=== PATIENT | female | born 1970 | race Caucasian/White ===

== ENCOUNTER 2017-11-26 13:47 | Outpatient (CLI) | payer OTHER, SELFPAY ==
--- NOTE | 2017-11-26 13:49 | DI.RAD.S_ITS ---
PROCEDURE: PAIN L/S TRANSFORAMINAL INJECT INDICATIONS: Lumbosacral radiculopathy FINDINGS: Fluoroscopic spot filming was performed to verify placement of spinal needles at the left L5-S1 nerve root level(s), as labeled on the films. Appropriate location(s) of the needle tip(s) was confirmed by injection of iodinated contrast. IMPRESSION: Successful left L5-S1 nerve root localization. Dictated by: Duane Edmond M.D. on 11/26/2017 at 16:50 Approved by: Duane Edmond M.D. on 11/26/2017 at 16:51
[2017-11-26 14:37] VITALS: BP 128/80; PULSE 93; RESP 18; TEMP 36.3; O2SAT 98
[2017-11-26 15:00] VITALS: BP 188/112; PULSE 96; RESP 11; O2SAT 100
--- NOTE | 2017-11-26 15:04 | P.PCN_ITS ---
Procedures Date/Time Date of procedure: 11/26/17 Time of procedure: 15:00 General Procedure description: PREOP DIAGNOSIS 1. FORMAINAL STENOSIS WITH LE SYMPTOMS POST OP DIAGNOSIS 1. FORMAINAL STENOSIS WITH LE SYMPTOMS PROCEDURES 1.FLUOROSCOPICALLY GUIDED CONTRAST CONTROLLED TRANSFORAMINAL EPIDURAL STEROID INJECTION - Left L5/S1 PHYSICIAN: Shaq Ayoub DO INDICATIONS: Florence is referred by Reina FUNG for treatment of Foraminal Stenosis with Left LE Symptoms FINDINGS Foraminal Nerve Root Compression secondary to disc disease and facet hypertrophy DESCRIPTION OF PROCEDURE: Following denial of allergy and review of potential side effects and complications, including, but not necessarily limited to, infection, allergic reaction, local tissue breakdown, stroke, temporary or permanent nerve injury, paralysis, and possible , the patient indicated that the patient understood and agreed to proceed. An informed consent document was signed by the patient, witnessed by a nurse, and placed in the patient's chart. Additionally, other treatment options including medications, modalities, and physical therapy were reviewed with the patient. Per the patient request, IV conscious sedation was administered via 5mg of Versed to patient comfort. The patient's vital signs were monitored throughout the procedure by both the nurse and the physician without significant fluctuation. The patient remained conversant throughout the procedure. In the prone position following sterile prep and drape of the lumbar region, the Left L5/S1 posterior neuroforamen was identified fluoroscopically. The skin was anesthetized via a 25-gauge 1.5-inch needle with 1% lidocaine solution. At this point, a 25-gauge 3.5-inch spinal needle was atraumatically introduced and advanced under fluoroscopic guidance through the posterior Left L5/S1 neuroforamen to approximately the anterior aspect of the canal. Depth was confirmed on lateral view. Following negative aspiration, injection of approximately 1.5 cc of Isovue 200 under live fluoroscopy in the AP view confirmed excellent flow along the nerve root, into the epidural space without vascular or intrathecal uptake observed Radiological data, including multiple fluoroscopic views of the lumbosacral spine, reveal a spinal needle at the Left L5/S1 posterior neuroforamen. Subsequent views show flow of contrast material flowing superiorly and inferiorly along the nerve root confirming epidural flow. Subsequently, a test dose of 1.5 cc of 1% lidocaine solution was administered and patient was observed for two minutes for signs or symptoms of complications , including abdominal pain, shortness of breath, bilateral upper or lower extremity weakness, nausea and vomiting, prior to steroid injection. At this point, a total of 3 cc or 20 mg of dexamethasone and 80mg Depo Medrol was injected without incident. The patient was then transferred to the recovery area where they were observed for an appropriate time after the injection. The patient reported a VAS score of 7 prior to the procedure and a post-procedure VAS of 0. Total Fluoroscopy Time: 20.9 seconds Total Conscious Sedation Time: 24min POST OP INSTRUCTIONS The patient was provided a Pain Log to continue to record their response to the target-specific procedure prior to follow-up visit with their referring physician. Additionally, specific post-injection care instructions and a contact number to our office were provided if concerns arise regarding possible complications associated with the procedure are suspected. Shaq Ayoub DO Complications: none
[2017-11-26 15:07] VITALS: BP 170/100; PULSE 91; RESP 11; O2SAT 99
[2017-11-26 15:12] VITALS: BP 147/101; PULSE 93; RESP 11; O2SAT 99
[2017-11-26] MEDS: IOPAMIDOL 15 ML VIAL 3 ML INJ (15:12)
[2017-11-26] MEDS: MIDAZOLAM 5 MG/5 ML VIAL IV (15:12)
[2017-11-26] MEDS: BUPIVACAINE 0.25% (PF) 30 ML VIAL INJ (15:12)
[2017-11-26] MEDS: DEXAMETHASONE 10 MG/ML VIAL 20 MG INJ (15:12)
[2017-11-26] MEDS: methylPREDNISolone acetate 80 MG/ML VIAL INJ (15:12)
[2017-11-26 15:25] VITALS: BP 120/80; PULSE 91; RESP 16; O2SAT 98
[2017-11-26 15:32] VITALS: BP 128/88; PULSE 93; RESP 15; O2SAT 99
== END 2017-11-26 16:00 ==
PROVIDERS: PCP Nurse Practitioner; Visit Provider Physical Medicine & Rehabilitation
DX: M48.061 Spinal stenosis, lumbar region without neurogenic claudication (principal); M54.17 Radiculopathy, lumbosacral region; M43.17 Spondylolisthesis, lumbosacral region; M99.83 Other biomechanical lesions of lumbar region
CPT/HCPCS: 64483; 99152; J1040; J1100; J2250

== ENCOUNTER → 2019-10-28 16:36 | Outpatient (CLI) | payer OTHER, SELFPAY | PROVIDERS: PCP Physician Assistant Medical; Referring Provider Physical Medicine & Rehabilitation; Visit Provider Physical Medicine & Rehabilitation | DX: M43.17 Spondylolisthesis, lumbosacral region (principal); Z53.8 Procedure and treatment not carried out for other reasons; M47.816 Spondylosis without myelopathy or radiculopathy, lumbar region; M79.671 Pain in right foot ==

== ENCOUNTER → 2020-03-07 08:19 | Outpatient (CLI) | payer OTHER, SELFPAY ==
[2020-03-08 12:38] LABS: COVID19 Sendout Not Detected (Not Detect)
== END ==
PROVIDERS: PCP Physician Assistant Medical; Visit Provider Physician Assistant
DX: Z11.59 Encounter for screening for other viral diseases (principal)
CPT/HCPCS: 87635

== ENCOUNTER 2020-09-01 14:53 | Outpatient (CLI) | payer OTHER, SELFPAY ==
[2020-09-01] VITALS (7 sets, daily range): BP systolic 142–197; BP diastolic 72–96; PULSE 72–87; RESP 10–22; TEMP 37; O2SAT 97–99
--- NOTE | 2020-09-01 14:55 | DI.RAD.S_ITS ---
PROCEDURE: PAIN L/SI FACET INJ/BLK 1STL INDICATIONS: facet arthropathy COMPARISON: [facility], MR, MR LUMBAR SPINE WITHOUT CONTRAST, 01/29/2020, 9:19. [facility], RG, XR LUMBAR SPINE 6+ VIEWS, 12/18/2019, 11:21. FINDINGS: Fluoroscopic spot filming was performed to verify placement of spinal needles at the left L4-L5 and L5-S1 level(s), as labeled on the films. Appropriate location(s) of the needle tip(s) was confirmed by injection of iodinated contrast. IMPRESSION: Fluoroscopy for pain management. Dictated by: Celine Peralta M.D. on 09/01/2020 at 17:18 Approved by: Celine Peralta M.D. on 09/01/2020 at 17:19
[2020-09-01] MEDS: fentaNYL 100 MCG/2 ML INJ 50 MCG IV (15:27)
[2020-09-01] MEDS: MIDAZOLAM 5 MG/5 ML VIAL IV (15:31)
[2020-09-01] MEDS: BETAMETHASONE 30 MG/5 ML MDV 12 MG INJ (15:33)
[2020-09-01] MEDS: IOPAMIDOL 15 ML VIAL 3 ML INJ (15:33)
[2020-09-01] MEDS: BUPIVACAINE 0.5% (PF) VIAL 2 ML INJ (15:33)
--- NOTE | 2020-09-01 15:42 | P.PCN_ITS ---
Date/Time/Diagnoses Date of procedure: 09/01/20 Time of procedure: 15:42 Pre-procedure diagnosis: 1. FACET ARTHROPATHY, 2. AXIAL LBP, 3. MULTILEVEL DDD Post-procedure diagnosis: same Procedure Notes Procedure: 1. FLUOROSCOPICALLY GUIDED CONTRAST CONTROLLED FACET JOINT INJECTIONS LEFT L4/5, L5/S1 Indications: Florence is referred by CURRY Leon for treatment of Axial LBP Physician: Shaq Ayoub Total Fluoroscopy time (seconds): 9 Total sedation minutes: 9 Complications: none Procedure in detail & Post-procedure care: FINDINGS Multilevel Facet Arthropathy with Clinically significant axial LBP DESCRIPTION OF PROCEDURE Fluoroscopically guided, contrast-controlled left L4/5, L5/S1 facet joint injections. Following review of allergy and review of potential side effects and complications, including, but not necessarily limited to, infection, allergic reaction, local tissue breakdown, stroke, temporary or permanent nerve injury, paralysis, and possible , the patient indicated that the patient understood and agreed to proceed. An informed consent document was signed by the patient, witnessed by a nurse, and placed in the patient's chart. Additionally, other treatment options including medications, modalities, and physical therapy were reviewed with the patient. After review of previous anaesthesic history and IV conscious sedation the patient was deemed safe to proceed with today?s procedure with IV conscious sedation as ASA class II designation. Safety time-out was performed to confirm patient ID, procedure to be performed and site of procedure. IV sedation was accomplished with a combination of 3mg of Versed and 50mcg of Fentanylwas administered by the RN after DO order, titrated to patient comfort during the course of the procedure while the patient remained responsive to all verbal commands. In the prone position, following sterile prep and drape of the lumbar region, the posterior aspect of the left L4/5, L5/S1 facet joints were identified fluoroscopically. The skin was anesthetized via a 25-gauge 1.5-inch needle with 1% lidocaine solution into the corresponding facet joints. At this point, a 22- gauge 3.5-inch spinal needle was atraumatically introduced and advanced under fluoroscopic guidance into the corresponding facet joints. Following negative aspiration, injections of approximately 0.2-cc of Isovue 200 confirmed int erarticular placement without vascular uptake. Radiological data, including multiple fluoroscopic views of the lumbosacral spine, reveal a spinal needle at the left L4/5, L5/S1 facet joints. Subsequent views show flow of contrast material both superiorly and inferiorly within the joint space without vascular or intrathecal uptake. At this point, a total of 0.5 cc including a mixture of 0.25cc Marcaine and 0.25cc betamethasone was injected without complication into each of the corresponding facet joints. The procedure tolerated the procedure well without signs or symptoms of complications prior to transfer to the recovery area continued monitoring without incident. The patient was then transferred to the recovery area where they were observed for an appropriate period of time after the injection. The patient reported a VAS score of 7 prior to the procedure and a post-procedure VAS of 0. POST OP INSTRUCTIONS The patient was provided a Pain Log to continue to record their response to the target-specific procedure prior to follow-up visit with their referring physician. Additionally, specific post-injection care instructions and a contact number to our office were provided if concerns arise regarding possible complications associated with the procedure are suspected.
== END 2020-09-01 15:57 | disposition home or self-care (01) ==
LOC: RAD 14:55
PROVIDERS: PCP Physician Assistant Medical; Referring Provider Physical Medicine & Rehabilitation; Visit Provider Physical Medicine & Rehabilitation
DX: M47.816 Spondylosis without myelopathy or radiculopathy, lumbar region (principal); M47.817 Spondylosis without myelopathy or radiculopathy, lumbosacral region; M51.36 Other intervertebral disc degeneration, lumbar region; M51.37 Other intervertebral disc degeneration, lumbosacral region; M54.5 Low back pain
CPT/HCPCS: 64493; 64494; J0702; J2250; J3010

== ENCOUNTER 2020-11-24 13:35 | Outpatient (CLI) | payer OTHER, SELFPAY ==
[2020-11-24] VITALS (7 sets, daily range): BP systolic 137–175; BP diastolic 71–100; PULSE 79–87; RESP 12–20; TEMP 36.3; O2SAT 95–100
--- NOTE | 2020-11-24 13:36 | DI.RAD.S_ITS ---
PROCEDURE: PAIN L/SI FACET INJ/BLK 1STL INDICATIONS: SPONDYLOSIS COMPARISON: [facility], , PAIN L/SI FACET INJ/BLK 1STL, 09/01/2020, 15:32. FINDINGS: Fluoroscopic spot filming was performed to verify placement of spinal needles at the L4, L5, and S1 level(s), as labeled on the films. Appropriate location(s) of the needle tip(s) was confirmed by injection of iodinated contrast. IMPRESSION: Intraprocedural examination within normal limits. Dictated by: Christopher Soto M.D. on 11/24/2020 at 13:46 Approved by: Christopher Soto M.D. on 11/24/2020 at 13:46
[2020-11-24] MEDS: IOPAMIDOL 15 ML VIAL 3 ML INJ (14:20)
[2020-11-24] MEDS: MIDAZOLAM 5 MG/5 ML VIAL IV (14:20)
[2020-11-24] MEDS: fentaNYL 100 MCG/2 ML INJ 50 MCG IV (14:20)
[2020-11-24] MEDS: BUPIVACAINE 0.5% (PF) VIAL 5 ML INJ (14:28)
--- NOTE | 2020-11-24 14:33 | PM.PROC.IR.1 ---
Date/Time/Diagnoses Date of procedure: 11/24/20 Time of procedure: 14:33 Pre-procedure diagnosis: 1. FACET ARTHROPATHY Post-procedure diagnosis: same Procedure Notes Procedure: 1. Right L4, L5 and S1 MB BLOCKS Indications: Florence is referred by CURRY Leon for treatment of Right Axial LBP. Physician: Shaq Ayoub Total Fluoroscopy time (seconds): 6 Total sedation minutes: 10 Complications: none Procedure in detail & Post-procedure care: DESCRIPTION OF PROCEDURE Fluoroscopically guided, contrast-controlled right L4, L5 and S1 medial branch blocks with 0.5cc of 0.5% Marcaine. Following review of allergy and review of potential side effects and complications, including, but not necessarily limited to, infection, allergic reaction, local tissue breakdown, nerve injury, paralysis, stroke and possible , the patient indicated that the patient understood and agreed to proceed. An informed consent document was signed by the patient, witnessed by a nurse, and placed in the patient's chart. After review of previous anaesthesic history and IV conscious sedation the patient was deemed safe to proceed with today?s procedure with IV conscious sedation as ASA class II designation. Safety time-out was performed to confirm patient ID, procedure to be performed and site of procedure. IV sedation was accomplished with a combination of 3mg of Versed and 50mcg of Fentanyl was administered by the RN after DO order, titrated to patient comfort during the course of the procedure while the patient remained responsive to all verbal commands In the prone position, following sterile prep and drape of the lumbar region, the right L4, L5 and S1 anatomical location of the medial branch of the dorsal ramus was identified fluoroscopically. Subsequently an anesthetic skin wheal using 1% lidocaine solution was initiated at each of the anatomical spots. Subsequently then a 22-gauge 3.5-inch spinal needle was atraumatically introduced and advanced under fluoroscopic guidance at each of the corresponding sites at the right L4, L5 and S1 MB. After negative aspiration, 0.2 cc of Isovue 200 was injected, confirming placement without vascular or intrathecal uptake. Subsequently then 0.5 cc of 0.5% Marcaine solution was injected at each of the corresponding sites at the right L4, L5 and S1 medial branch locations. The patient tolerated the procedure well without signs or symptoms of complications. The procedure tolerated the procedure well without signs or symptoms of complications prior to transfer to the recovery area continued monitoring without incident. Post-procedure, the patient was monitored initiating provocative activities to measure the amount of relief from block of the facetogenic pain. The patient reported a VAS of 7 prior to the procedure and a post-procedure VAS of 1. It has been a pleasure to assist in the diagnostic and therapeutic care of your patient. POST OP INSTRUCTIONS The patient was provided with a Pain Log to complete over the next several hours and subsequent days prior to the patient's follow up with the ordering physician. 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 The patient is aware, was provided, once again, with a Pain Log and will follow up with the referring physician for review and clinical correlation.
== END 2020-11-24 14:53 | disposition home or self-care (01) ==
PROVIDERS: PCP Physician Assistant Medical; Referring Provider Physical Medicine & Rehabilitation; Visit Provider Physical Medicine & Rehabilitation
DX: M47.816 Spondylosis without myelopathy or radiculopathy, lumbar region (principal); M47.817 Spondylosis without myelopathy or radiculopathy, lumbosacral region
CPT/HCPCS: 64493; 64494; J2250; J3010

== ENCOUNTER 2021-01-05 10:33 | Outpatient (CLI) | payer OTHER, SELFPAY ==
[2021-01-05] VITALS (8 sets, daily range): BP systolic 160–232; BP diastolic 75–100; PULSE 63–74; RESP 12–18; TEMP 36.1–36.5; O2SAT 97–100
--- NOTE | 2021-01-05 10:34 | DI.RAD.S_ITS ---
PROCEDURE: PAIN L/S MED/LAT N RFA INDICATIONS: SPONDYLOSIS COMPARISON: [facility], XA, PAIN L/SI FACET INJ/BLK 1STL, 11/24/2020, 14:25. FINDINGS: Fluoroscopic spot filming was performed to verify placement of spinal needles at the L4, L5, and S1 level(s), as labeled on the films. IMPRESSION: Intraprocedural examination within normal limits. Dictated by: Christopher Soto M.D. on 01/05/2021 at 11:40 Approved by: Christopher Soto M.D. on 01/05/2021 at 11:40
[2021-01-05] MEDS: MIDAZOLAM 5 MG/5 ML VIAL IV (11:48)
[2021-01-05] MEDS: LIDOCAINE 1% 20 ML INJ (11:50)
[2021-01-05] MEDS: BUPIVACAINE 0.5% (PF) VIAL 5 ML INJ (11:50)
[2021-01-05] MEDS: fentaNYL 100 MCG/2 ML INJ 50 MCG IV (11:51)
--- NOTE | 2021-01-05 12:12 | P.PCN_ITS ---
Date/Time/Diagnoses Date of procedure: 01/05/21 Time of procedure: 12:12 Pre-procedure diagnosis: 1. RECALCITRANT FACET ARTHROPATHY Post-procedure diagnosis: same Procedure Notes Procedure: 1. RIGHT L4 AND L5 MEDIAL BRANCH RADIOFREQUENCY NEUROTOMY AND RIGHT S1 DORSAL RAMUS BRANCH RADIOFREQUENCY NEUROTOMY Indications: Florence is referred by CURRY Leon for treatment of facet arthropathy. Physician: Shaq Ayoub Total Fluoroscopy time (seconds): 12 Total sedation minutes: 20 Complications: none Procedure in detail & Post-procedure care: DESCRIPTION OF PROCEDURE Right L4 and L5 medial branch radiofrequency neurotomy and right S1 dorsal ramus branch radiofrequency neurotomy under fluoroscopy with conscious sedation. The patient is well known to this clinic having undergone previous facet injections with good but temporary relief. The patient has experienced appropriate, concordant relief with previous facet and median branch blocks but the patient's pain has been recalcitrant to further conservative measures. Therefore, based upon the patient's relief and persistent symptoms, the patient is considered an appropriate candidate for facet rhizotomy. All of the patient's questions regarding the risks versus benefits of the procedure, including, but not limited to, bleeding, infection, temporary as well as lasting nerve injury, paralysis, stroke, and , as well treatment alternatives were answered to satisfaction. After review of previous anaesthesic history and IV conscious sedation the patient was deemed safe to proceed with today?s procedure with IV conscious sedation as ASA class II designation. Safety time-out was performed to confirm patient ID, procedure to be performed and site of procedure. IV sedation was accomplished with a combination of 3mg of Versed and 50mcg of Fentanyl was administered by the RN after DO order, titrated to patient comfort during the course of the procedure while the patient remained responsive to all verbal commands. After obtaining informed consent, denial of pertinent drug allergies, as well as being made aware of the potential risks of bleeding, infection, spinal cord trauma, paralysis, temporary and permanent nerve damage, seizure, stroke, and possible , the patient was brought to the fluoroscopy suite and positioned prone on the fluoroscopy table. The lumbar region was prepped with Betadine and covered with a fenestrated drape in the usual sterile fashion. Appropriate monitors applied including pulse oximeter, pulse, and blood pressure for regular monitoring throughout the procedure. After local infiltration using 1% lidocaine, under fluoroscopic guidance, a 10- cm RF insulated needle with a 10-mm active tip was positioned parallel to the junction of the right sacral ala and the superior articulating process where the S1 dorsal ramus resides. Needle placement was confirmed with sensory stimulation at 50 Hz, with motor stimulation of .5v on the right which produced local stimulation without radicular component. The stimulation was then increased to 2v with, once again, only local multifidus stimulation without radicular component. This was then followed by two discreet lesions performed at 80 degrees Celsius for 90 seconds each. The needle was then removed and the identical procedure was performed along the length of the right L5 medial branch with motor stimulation at .7v on the right. The identical procedure was once again performed along the length of the right L4 medial branch with motor stimulation of .5v on the right. The patient tolerated the procedure well without signs or symptoms of complications prior to transfer to the recovery area continued monitoring without incident. The patient was then transferred to the recovery area where they were observed for an appropriate period of time after the injection. The patient was then transferred to the recovery area where they were observed for an appropriate period of time after the injection. The patient reported a VAS score of 8 prior to the procedure and a post- procedure VAS of 0. POST OP INSTRUCTIONS The patient was provided a Pain Log to continue to record the patient's response to the target-specific procedure prior to the patient's follow-up visit with the referring physician. Additionally, specific post-injection care instructions and a contact number to our office were provided if concerns arise regarding possible complications associated with the procedure are suspected.
== END 2021-01-05 12:20 | disposition home or self-care (01) ==
LOC: RAD 10:34
PROVIDERS: PCP Physician Assistant Medical; Referring Provider Physical Medicine & Rehabilitation; Visit Provider Physical Medicine & Rehabilitation
DX: M47.816 Spondylosis without myelopathy or radiculopathy, lumbar region (principal); M47.817 Spondylosis without myelopathy or radiculopathy, lumbosacral region
CPT/HCPCS: 64635; 64636; 99152; J2250; J3010

== ENCOUNTER 2021-02-16 10:47 | Outpatient (CLI) | payer OTHER, SELFPAY ==
[2021-02-16] VITALS (9 sets, daily range): BP systolic 158–206; BP diastolic 82–93; PULSE 72–81; RESP 12–26; TEMP 36.4; O2SAT 96–100
--- NOTE | 2021-02-16 10:50 | DI.RAD.S_ITS ---
PROCEDURE: PAIN L/S MED/LAT N RFA INDICATIONS: SPONDYLOSIS COMPARISON: [facility], , PAIN L/S MED/LAT N RFA, 01/05/2021, 11:48. FINDINGS: Fluoroscopic spot filming was performed to verify placement of spinal needles at the bilateral L 4-L5, L5-S1 and S1-S2 pedicles level(s), as labeled on the films. Appropriate location(s) of the needle tip(s) was confirmed by injection of iodinated contrast. IMPRESSION: Access needles as described above. Dictated by: Michelle Woody MD, PhD on 02/16/2021 at 12:34 Approved by: Michelle Woody MD, PhD on 02/16/2021 at 12:35
[2021-02-16] MEDS: fentaNYL 100 MCG/2 ML INJ 50 MCG IV (11:59)
[2021-02-16] MEDS: MIDAZOLAM 5 MG/5 ML VIAL IV (11:59)
[2021-02-16] MEDS: LIDOCAINE 1% 20 ML 10 ML INJ (12:03)
[2021-02-16] MEDS: BUPIVACAINE 0.5% (PF) VIAL 5 ML INJ (12:03)
--- NOTE | 2021-02-16 12:24 | P.PCN_ITS ---
Date/Time/Diagnoses Date of procedure: 02/16/21 Time of procedure: 12:24 Pre-procedure diagnosis: 1. RECALCITRANT FACET ARTHROPATHY Post-procedure diagnosis: same Procedure Notes Procedure: 1. LEFT L4 AND L5 MEDIAL BRANCH RADIOFREQUENCY NEUROTOMY AND LEFT S1 DORSAL RAMUS RADIOFREQUENCY NEUROTOMY, Indications: Florence is referred by CURRY Leon for treatment of facet arthropathy. Physician: Shaq Ayoub Total Fluoroscopy time (seconds): 9 Total sedation minutes: 18 Complications: none Procedure in detail & Post-procedure care: DESCRIPTION OF PROCEDURE Left L4 and L5 medial branch radiofrequency neurotomy and left S1 dorsal ramus branch radiofrequency neurotomy under fluoroscopy with conscious sedation. The patient is well known to this clinic having undergone previous facet injections with good but temporary relief. The patient has experienced appropriate, concordant relief with previous facet and median branch blocks but the patient's pain has been recalcitrant to further conservative measures. Therefore, based upon the patient's relief and persistent symptoms, the patient is considered an appropriate candidate for facet rhizotomy. All of the patient's questions regarding the risks versus benefits of the procedure, including, but not limited to, bleeding, infection, temporary as well as lasting nerve injury, paralysis, stroke, and , as well treatment alternatives were answered to satisfaction. After obtaining informed consent, denial of pertinent drug allergies, as well as being made aware of the potential risks of bleeding, infection, spinal cord trauma, paralysis, temporary and permanent nerve damage, seizure, stroke, and possible , the patient was brought to the fluoroscopy suite and positioned prone on the fluoroscopy table. The lumbar region was prepped with Betadine and covered with a fenestrated drape in the usual sterile fashion. Appropriate monitors applied including pulse oximeter, pulse, and blood pressure for regular monitoring throughout the procedure. IV sedation was accomplished with a combination of 3mg of Versed and 50mcg of Fentanyl titrated to patient comfort during the course of the procedure while the patient remained responsive to all verbal commands. After local infiltration using 1% lidocaine, under fluoroscopic guidance, a 10- cm RF insulated needle with a 10-mm active tip was positioned parallel to the junction of the left sacral ala and the superior articulating process where the S1 dorsal ramus resides. Needle placement was confirmed with sensory stimulation at 50 Hz, with motor stimulation of .5v on the left which produced local stimulation without radicular component. The stimulation was then increased to 2v with, once again, only local multifidus stimulation without radicular component. This was then followed by two discreet lesions performed at 80 degrees Celsius for 90 seconds each. The needle was then removed and the identical procedure was performed along the length of the left L5 medial branch with motor stimulation at .7v on the left. The identical procedure was once again performed along the length of the left L4 medial branch with motor stimulation of .5v on the left. The patient tolerated the procedure well without signs or symptoms of complications prior to transfer to the recovery area continued monitoring without incident. The patient was then transferred to the recovery area where they were observed for an appropriate period of time after the injection. The patient was then transferred to the recovery area where they were observed for an appropriate period of time after the injection. The patient reported a VAS score of 9 prior to the procedure and a post- procedure VAS of 0. POST OP INSTRUCTIONS The patient was provided a Pain Log to continue to record the patient's response to the target-specific procedure prior to the patient's follow-up visit with the referring physician. Additionally, specific post-injection care instructions and a contact number to our office were provided if concerns arise regarding possible complications associated with the procedure are suspected.
== END 2021-02-16 12:32 | disposition home or self-care (01) ==
PROVIDERS: PCP Physician Assistant Medical; Referring Provider Physical Medicine & Rehabilitation; Visit Provider Physical Medicine & Rehabilitation
DX: M47.816 Spondylosis without myelopathy or radiculopathy, lumbar region (principal); M47.817 Spondylosis without myelopathy or radiculopathy, lumbosacral region
CPT/HCPCS: 64635; 64636; 99152; J2250; J3010

== ENCOUNTER → 2023-03-07 09:05 | Outpatient (CLI) | payer OTHER, SELFPAY ==
--- NOTE | 2023-03-07 09:06 | DI.RAD.S_ITS ---
PROCEDURE: XR LUMBAR SPINE MIN 4V INDICATIONS: L5 pars defect left L5 radiculopathy TECHNIQUE: 5 views of the lumbar spine were acquired, including bilateral oblique views. COMPARISON: [facility], MR, MR LUMBAR SPINE WITHOUT CONTRAST, 01/29/2020, 9:19. Outside Film, CT, CT ABDOMEN PELVIS WITH CONTRAST, 09/17/2022, 6:23. FINDINGS: Bones: 5 nonrib-bearing vertebrae are present. There is grade 2 anterolisthesis measuring 1.4 cm of L5 on S1. L5 pars defect is present. Severe disc space narrowing is present at L5-S1, minimal L4-5. Prominent L5-S1 foraminal narrowing. No vertebral body compression fractures. No suspicious bony lesions. Soft tissues: Overlying bowel gas pattern is normal. No suspicious soft tissue calcifications. Radiodensity is noted overlying the right hemiabdomen appearing related to suture material. IMPRESSION: Grade 2 anterolisthesis of L5 on S1 with L5 pars defect. Dictated by: Josey Toth M.D. on 03/07/2023 at 16:43 Approved by: Josey Toth M.D. on 03/07/2023 at 16:45
== END ==
PROVIDERS: PCP Physician Assistant Medical; Referring Provider Physical Medicine & Rehabilitation; Visit Provider Physical Medicine & Rehabilitation
DX: M54.17 Radiculopathy, lumbosacral region (principal); M43.17 Spondylolisthesis, lumbosacral region
CPT/HCPCS: 72110

== ENCOUNTER → 2023-04-05 07:16 | Outpatient (CLI) | payer OTHER, SELFPAY ==
--- NOTE | 2023-04-05 07:17 | DI.MRI.S_ITS ---
PROCEDURE: MR LUMBAR SPINE WO CON INDICATIONS: L5 pars defect left L5 radiculopathy TECHNIQUE: Noncontrast sagittal T1 spin echo and T2 fast echo, sagittal STIR, and T2 fast spin echo through the lumbar spine. In cases with scoliosis, additional coronal T2 fast spin echo may be performed. COMPARISON: [facility], MR, MR LUMBAR SPINE WITHOUT CONTRAST, 01/29/2020, 9:19. [facility], CR, XR LUMBAR SPINE MIN 4V, 03/07/2023, 9:15. FINDINGS: Image quality: Excellent. Alignment and Curvature: There is normal bony alignment. Bone Marrow: Marrow is of normal overall signal. No acute vertebral body compression fractures. Spinal Cord: Conus medullaris terminates at the L1-L2 level. Visualized cord demonstrates normal signal and size. Paraspinous Soft Tissues: No paravertebral masses. T12-L1: Normal appearance. L1-L2: Normal appearance. L2-L3: Normal appearance. L3-L4: Normal appearance. L4-L5: Mild facet hypertrophy. No canal stenosis or foraminal stenosis. L5-S1: Bilateral L5 pars defects. Facet hypertrophy. Unchanged 7 mm anterolisthesis of L5 on S1. No canal stenosis. Marked compression of the bilateral L5 nerve roots in the foramina, the where there is severe stenosis. IMPRESSION: 1. Bilateral L5 pars defects with unchanged 7 mm anterolisthesis of 5 on S1. There is severe bilateral foraminal narrowing with marked compression on the bilateral L5 nerve roots in the foramina. Dictated by: Gunnar Jewell M.D. on 04/05/2023 at 8:31 Approved by: Gunnar Jewell M.D. on 04/05/2023 at 8:42
== END ==
PROVIDERS: PCP Physician Assistant Medical; Referring Provider Physical Medicine & Rehabilitation; Visit Provider Physical Medicine & Rehabilitation
DX: M54.17 Radiculopathy, lumbosacral region (principal); M43.17 Spondylolisthesis, lumbosacral region; M48.061 Spinal stenosis, lumbar region without neurogenic claudication
CPT/HCPCS: 72148

== ENCOUNTER 2023-05-02 15:21 | Outpatient (CLI) | payer OTHER, SELFPAY ==
[2023-05-02] VITALS (10 sets, daily range): BP systolic 163–217; BP diastolic 91–102; PULSE 78–90; RESP 12–23; TEMP 37.1; O2SAT 95–100
--- NOTE | 2023-05-02 15:22 | DI.RAD.S_ITS ---
PROCEDURE: PAIN L/S TRANSFORAMINAL INJECT INDICATIONS: SPONDYLOSIS COMPARISON: [facility], , PAIN L/S TRANSFORAMINAL INJECT, 11/26/2017, 15:11. FINDINGS: Fluoroscopic spot filming was performed to verify placement of spinal needles at the left L5-S1 neural foramen level(s), as labeled on the films. Appropriate location(s) of the needle tip(s) was confirmed by injection of iodinated contrast. IMPRESSION: Access needle at the left L5-S1 neural foramen for transforaminal epidural steroid injection. Dictated by: Michelle Woody MD, PhD on 05/02/2023 at 16:55 Approved by: Michelle Woody MD, PhD on 05/02/2023 at 16:55
[2023-05-02] MEDS: MIDAZOLAM 2 MG/2 ML VIAL IV ×2 (16:22→16:30)
[2023-05-02] MEDS: BUPIVACAINE 0.25% (PF) VIAL 2 ML INJ (16:35)
[2023-05-02] MEDS: BETAMETHASONE 30 MG/5 ML MDV 6 MG INJ (16:35)
[2023-05-02] MEDS: iopamidoL 15 ML VIAL 3 ML INJ (16:35)
[2023-05-02] MEDS: DEXAMETHASONE 10 MG/ML VIAL INJ (16:35)
--- NOTE | 2023-05-02 16:46 | P.PCN_ITS ---
Date/Time/Diagnoses Date of procedure: 05/02/23 Time of procedure: 16:46 Pre-procedure diagnosis: 1. FORAMINAL STENOSIS WITH LE SYMPTOMS Post-procedure diagnosis: same Procedure Notes Procedure: 1. FLUOROSCOPICALLY GUIDED CONTRAST CONTROLLED TRANSFORAMINAL EPIDURAL STEROID INJECTION - Left L5/S1 Indications: Florence is referred by CURRY Leon for treatment of Foraminal Stenosis with Left LE Symptoms Physician: Shaq Ayoub Total Fluoroscopy time (seconds): 13 Total sedation minutes: 18 Complications: none Procedure in detail & Post-procedure care: FINDINGS Foraminal Nerve Root Compression secondary to disc disease and facet hypertrophy DESCRIPTION OF PROCEDURE Following review of allergy and review of potential side effects and complications, including, but not necessarily limited to, infection, allergic reaction, local tissue breakdown, stroke, temporary or permanent nerve injury, paralysis, and possible , the patient indicated that the patient understood and agreed to proceed. An informed consent document was signed by the patient, witnessed by a nurse, and placed in the patient's chart. Additionally, other treatment options including medications, modalities, and physical therapy were reviewed with the patient. After review of previous anaesthesic history and IV conscious sedation the patient was deemed safe to proceed with today?s procedure with IV conscious sedation as ASA class II designation. Safety time-out was performed to confirm patient ID, procedure to be performed and site of procedure. IV sedation was accomplished with a combination of 4mg of Versed was administered by the RN after DO order, titrated to patient comfort during the course of the procedure while the patient remained responsive to all verbal commands In the prone position following sterile prep and drape of the lumbar region, the Left L5/S1 posterior neuroforamen was identified fluoroscopically. The skin was anesthetized via a 25-gauge 1.5-inch needle with 1% lidocaine solution. At this point, a 25-gauge 3.5-inch spinal needle was atraumatically introduced and advanced under fluoroscopic guidance through the posterior Left L5/S1 neuroforamen to approximately the anterior aspect of the canal. Depth was confirmed on lateral view. Following negative aspiration, injection of approximately 1.5cc of Isovue 200 under live fluoroscopy in the AP view confir med excellent flow along the nerve root, into the epidural space without vascular or intrathecal uptake observed. Radiological data, including multiple fluoroscopic views of the lumbosacral spine, reveal a spinal needle at the Left L5/S1 posterior neuroforamen. Subsequent views show flow of contrast material flowing superiorly and inferiorly along the nerve root confirming epidural flow. Subsequently, a test dose of 1.5cc of 1% lidocaine solution was administered and patient was observed for two minutes for signs or symptoms of complications, including abdominal pain, shortness of breath, bilateral upper or lower extremity weakness, nausea and vomiting, prior to steroid injection. At this point, a total of 2cc or 10mg of dexamethasone and 6mg of betamethasone was injected without incident. The procedure tolerated the procedure well without signs or symptoms of complications prior to transfer to the recovery area continued monitoring without incident. The patient was then transferred to the recovery area where they were observed for an appropriate time after the injection. The patient reported a VAS score of 8 prior to the procedure and a post-procedure VAS of 1. POST OP INSTRUCTIONS The patient was provided a Pain Log to continue to record their response to the target-specific procedure prior to follow-up visit with their referring phy sician. Additionally, specific post-injection care instructions and a contact number to our office were provided if concerns arise regarding possible complications associated with the procedure are suspected.
== END 2023-05-02 17:00 | disposition home or self-care (01) ==
LOC: RAD 15:21
PROVIDERS: PCP Physician Assistant Medical; Referring Provider Physical Medicine & Rehabilitation; Visit Provider Physical Medicine & Rehabilitation
DX: M48.07 Spinal stenosis, lumbosacral region (principal); M51.17 Intervertebral disc disorders with radiculopathy, lumbosacral region; M47.27 Other spondylosis with radiculopathy, lumbosacral region
CPT/HCPCS: 64483; 99152; J0702; J1100; J2250; J3490

== ENCOUNTER 2023-09-26 09:56 | Outpatient (CLI) | payer OTHER, SELFPAY ==
[2023-09-26] VITALS (13 sets, daily range): BP systolic 106–168; BP diastolic 60–85; PULSE 66–85; RESP 12–20; TEMP 36.7; O2SAT 94–100
--- NOTE | 2023-09-26 10:45 | DI.RAD.S_ITS ---
PROCEDURE: PAIN L/S TRANSFORAMINAL INJECT INDICATIONS: Radiculopathy COMPARISON: [facility], XA, PAIN L/S TRANSFORAMINAL INJECT, 05/02/2023, 17:28. FINDINGS: 5 images. Fluoroscopic spot filming was performed to verify placement of spinal needles at the left L5-S1 level(s), as labeled on the films. Appropriate location(s) of the needle tip(s) was confirmed by injection of iodinated contrast. IMPRESSION: Intraoperative guidance provided. Dictated by: Fidel Hutton M.D. on 09/26/2023 at 16:41 Approved by: Fidel Hutton M.D. on 09/26/2023 at 16:42
[2023-09-26] MEDS: diphenhydrAMINE 50 MG/ML VIAL IV (11:35)
[2023-09-26] MEDS: fentaNYL 100 MCG/2 ML INJ 50 MCG IV (11:35)
[2023-09-26] MEDS: MIDAZOLAM 2 MG/2 ML VIAL IV (11:35)
[2023-09-26] MEDS: DEXAMETHASONE 10 MG/ML VIAL INJ (11:41)
[2023-09-26] MEDS: BETAMETHASONE 30 MG/5 ML MDV 6 MG INJ (11:41)
[2023-09-26] MEDS: iopamidoL 15 ML VIAL 3 ML INJ (11:41)
[2023-09-26] MEDS: BUPIVACAINE 0.25% (PF) VIAL 2 ML INJ (11:42)
--- NOTE | 2023-09-26 11:57 | P.PCN_ITS ---
Date/Time/Diagnoses Date of procedure: 09/26/23 Time of procedure: 11:57 Pre-procedure diagnosis: FORAMINAL STENOSIS WITH LEFT LE SYMPTOMS Post-procedure diagnosis: same Procedure Notes Procedure: 1. FLUOROSCOPICALLY GUIDED CONTRAST CONTROLLED TRANSFORAMINAL EPIDURAL STEROID INJECTION - LEFT L5/S1 TFESI Indications: Florence is referred by Edward for treatment of Foraminal Stenosis with Left LE Symptoms Physician: Shaq Ayoub Total Fluoroscopy time (seconds): 9 Total sedation minutes: 12 Complications: none Procedure in detail & Post-procedure care: FINDINGS Foraminal Nerve Root Compression secondary to disc disease and facet hypertrophy DESCRIPTION OF PROCEDURE Following review of allergy and review of potential side effects and complications, including, but not necessarily limited to, infection, allergic r eaction, local tissue breakdown, stroke, temporary or permanent nerve injury, paralysis, and possible , the patient indicated that the patient understood and agreed to proceed. An informed consent document was signed by the patient, witnessed by a nurse, and placed in the patient's chart. Additionally, other treatment options including medications, modalities, and physical therapy were reviewed with the patient. After review of previous anaesthesic history and IV conscious sedation the patient was deemed safe to proceed with today?s procedure with IV conscious sedation as ASA class II designation. Safety time-out was performed to confirm patient ID, procedure to be performed and site of procedure. IV sedation was accomplished with a combination of 2mg of Versed and 50mcg of Fentanyl was administered by the RN after DO order, titrated to patient comfort during the course of the procedure while the patient remained responsive to all verbal commands In the prone position following sterile prep and drape of the lumbar region, the left L5/S1 posterior neuroforamen was identified fluoroscopically. The skin was anesthetized via a 25-gauge 1.5-inch needle with 1% lidocaine solution. At this point, a 22-gauge 5-inch spinal needle was atraumatically introduced and advanced under fluoroscopic guidance through the posterior left L5/S1 neuroforamen to approximately the anterior aspect of the canal. Depth was confirmed on lateral view. Following negative aspiration, injection of approximately 1.5cc of Isovue 200 under live fluoroscopy in the AP view confirmed excellent flow along the nerve root, into the epidural space without vascular or intrathecal uptake observed Radiological data, including multiple fluoroscopic views of the lumbosacral spine, reveal a spinal needle at the left L5/S1 posterior neuroforamen. Subsequent views show flow of contrast material flowing superiorly and inferiorly along the nerve root confirming epidural flow. Subsequently, a test dose of 1.5 cc of 1% lidocaine solution was administered and patient was observed for two minutes for signs or symptoms of complications, including abdominal pain, shortness of breath, bilateral upper or lower extremity weakness, nausea and vomiting, prior to steroid injection. At this point, a total of 2cc or 10mg of dexamethasone and 6mg of betamethasone was injected without incident. The procedure tolerated the procedure well without signs or symptoms of complications prior to transfer to the recovery area continued monitoring without incident. The patient was then transferred to the recovery area where they were observed for an appropriate time after the injection. The patient reported a VAS score of 9 prior to the procedure and a post- procedure VAS of 2. POST OP INSTRUCTIONS The patient was provided a Pain Log to continue to record their response to the target-specific procedure prior to follow-up visit with their referring physician. Additionally, specific post-injection care instructions and a contact number to our office were provided if concerns arise regarding possible complications associated with the procedure are suspected.
--- NOTE | 2023-09-26 12:51 | PC.NURSE ---
1235- patient wide awake, stood at chair took steps, denies any weakness to BLE. Denies any dizziness, lightheaded, SOB, chest pain and itching. Band aid to left lower back leaked quarter size amount of blood on patients underwear, reinforced with 2x2 gauze and tagaderm. Patient aware of small amount of leak and is on 2 blood thinners, educated to monitor at home.
== END 2023-09-26 12:49 | disposition home or self-care (01) ==
LOC: RAD 09:57
PROVIDERS: PCP Physician Assistant Medical; Referring Provider Physical Medicine & Rehabilitation; Visit Provider Physical Medicine & Rehabilitation
DX: M48.07 Spinal stenosis, lumbosacral region (principal); M51.17 Intervertebral disc disorders with radiculopathy, lumbosacral region; M47.27 Other spondylosis with radiculopathy, lumbosacral region
CPT/HCPCS: 64483; 99152; J0702; J1100; J1200; J2250; J3010; J3490